=== PATIENT | male | born 1990 | race African-American/Black ===

== ENCOUNTER 2023-09-11 10:15 | Outpatient (CLI) | payer OTHER | END 2023-09-11 10:16 | disposition home or self-care (01) | LOC: PET 10:15 | PROVIDERS: ATTEND Internal Medicine Hematology & Oncology | DX: C34.81 Malignant neoplasm of overlapping sites of right bronchus and lung (principal); R59.0 Localized enlarged lymph nodes | CPT/HCPCS: 78815; A9552 ==

== ENCOUNTER 2023-09-11 14:00 | Inpatient (IN) | payer OTHER, SELFPAY ==
[2023-09-12 06:44] LABS: Hematocrit 28.1 % (42.0-52.0); Hemoglobin 9.1 g/dL (14.0-18.0); Manual Diff?? YES; Mean Corpuscular HGB CONC 32.4 g/dL (32.0-36.0); Mean Corpuscular Hemoglobin 25.5 pg (27.0-31.0); Mean Corpuscular Volume 78.7 fl (78.0-98.0); Mean Platelet Volume 10.2 fL (7.4-10.4); Platelet Count 510 10x3/uL (130-400); RBC Distribution Width 13.6 % (11.5-14.5); Red Blood Cell (RBC) Count 3.57 mill/uL (4.70-6.10); White Blood Cell (WBC) Count 13.5 10x3/uL (4.8-10.8)
[2023-09-12 06:45] LABS: Delete Auto Diff?? YES
[2023-09-12] MEDS ORDERED: Lidocaine 1% PF 5 ML VIAL ONE (06:51)
[2023-09-12] MEDS ORDERED: Dexamethasone 4 mg/ml Vial ONE (06:51)
[2023-09-12] MEDS ORDERED: Ondansetron PF 4 MG/2 ML Vial ONE (06:51)
[2023-09-12] MEDS ORDERED: fentaNYL PF 100 MCG/2 ML SYRINGE ONE ×2 (06:51→09:37)
[2023-09-12] MEDS ORDERED: Rocuronium Bromide 10 MG/ML (10ML VIAL) ONE (06:51)
[2023-09-12] MEDS ORDERED: PROPOFOL 20 ML ONE (06:51)
[2023-09-12] MEDS ORDERED: EPINEPHrine 1 MG/ML VIAL ONE (06:52)
[2023-09-12] MEDS ORDERED: Bupivacaine 0.25% HCL 30 ML VIAL ONE (06:52)
[2023-09-12 06:56] LABS: INR-International Normal Ratio 1.2; Prothrombin Time 15.4 sec (12.0-14.7)
[2023-09-12 06:57] LABS: PTT 41.1 sec (22.9-36.1)
[2023-09-12] MEDS ORDERED: Lidocaine 1% MPF 2 ML VIAL ONE (06:58)
[2023-09-12] MEDS ORDERED: Sodium Chloride 0.9% 100 ML ONE (06:59)
[2023-09-12] MEDS ORDERED: CEFAZOLIN 2 GM VIAL ONE (06:59)
[2023-09-12 07:02] LABS: Anion Gap 13 mmol/L (10-20); BUN (Urea Nitrogen) 9 mg/dL (8.9-20.6); Calc. Creatinine Clearance 139 mL/min (70-130); Calcium 9.5 mg/dL (7.8-10.44); Carbon Dioxide 26 mmol/L (22-29); Chloride 93 mmol/L (98-107); Estimated GFR 128; Glucose 119 mg/dL (70-105); Potassium 3.7 mmol/L (3.5-5.1); Sodium 128 mmol/L (136-145)
[2023-09-12] MEDS ORDERED: Midazolam HCl 2 mg/2 ml Vial ONE (07:29)
[2023-09-12 07:44] LABS: Band 1 % (5-11); CellaVision Operator ID LAB.KW3; Hypochromia SLIGHT = 6-15 cells HPF (0-5); Large Platelets 13.7 % (0-5); Lymphocytes 12 % (21-51); Monocytes 12 % (0-10); Neutrophil 76 % (42-75); Platelet Adequacy Comment Platelets Increased; Polychromasia SLIGHT = 2-3 cells HPF (0-2); Total Cell Count 102
[2023-09-12] MEDS ORDERED: Phenylephrine 10 MG/ML VIAL ONE (08:26)
[2023-09-12] MEDS ORDERED: Ketorolac Tromethamine 30 MG (1 mL) VIAL ONE (08:42)
[2023-09-12] MEDS ORDERED: SUGAMMADEX SODIUM 200 MG/2 ML VIAL ONE (08:42)
[2023-09-12] MEDS ORDERED: Ondansetron PF 4 MG/2 ML Vial IVP PRN (10:00)
[2023-09-12] MEDS ORDERED: Promethazine HCl 25 MG/ML VIAL IM PRN (10:00)
[2023-09-12] MEDS ORDERED: Ipratropium/Albuterol 3 ML NEB NEB PRN (10:00)
[2023-09-12] MEDS ORDERED: Morphine 4 MG/ML VIAL SLOW IVP PRN (10:00)
[2023-09-12] MEDS ORDERED: hydrALAZINE 20 MG/ML VIAL SLOW IVP PRN (10:00)
[2023-09-12 11:00] LABS: #Monocytes 0.7 thou/uL (0.11-0.59); #Neutrophils 9.2 thou/uL (1.40-6.50); %Basophils 0.2 % (0.0-1.0); %Eosinophils 0.1 % (0.0-10.0); %Lymphocytes 8.4 % (21.0-51.0); %Monocytes 6.1 % (0.0-10.0); %Neutrophils 84.8 % (42.0-75.0); Hematocrit 25.8 % (42.0-52.0); Hemoglobin 8.4 g/dL (14.0-18.0); Mean Corpuscular HGB CONC 32.6 g/dL (32.0-36.0); Mean Corpuscular Hemoglobin 25.8 pg (27.0-31.0); Mean Corpuscular Volume 79.4 fl (78.0-98.0); Mean Platelet Volume 10.7 fL (7.4-10.4); Platelet Count 503 10x3/uL (130-400); RBC Distribution Width 13.9 % (11.5-14.5); Red Blood Cell (RBC) Count 3.25 mill/uL (4.70-6.10); White Blood Cell (WBC) Count 10.9 10x3/uL (4.8-10.8)
[2023-09-12 11:24] LABS: Anion Gap 13 mmol/L (10-20); BUN (Urea Nitrogen) 9 mg/dL (8.9-20.6); Calc. Creatinine Clearance 139 mL/min (70-130); Carbon Dioxide 23 mmol/L (22-29); Chloride 96 mmol/L (98-107); Estimated GFR 128; Glucose 133 mg/dL (70-105); Potassium 4.1 mmol/L (3.5-5.1); Sodium 128 mmol/L (136-145)
[2023-09-12 15:41] VITALS: BMI 17.4
[2023-09-12] MEDS: CEFAZOLIN 2 GM in Sodium Chloride 0.9% 100 ML IVPB SCH (15:52)
[2023-09-12] MEDS: Acetaminophen 500 MG TAB PO SCH (16:58)
[2023-09-12] MEDS: Morphine IR Tab 15 MG TAB PO PRN (18:51)
[2023-09-13] MEDS: traMADol HCl 50 MG TAB PO PRN (06:09)
[2023-09-13 07:46] VITALS: TEMP 97.5
[2023-09-13 13:49] VITALS: BP 125/63
== END 2023-09-13 10:27 | disposition home or self-care (01) | DRG 167 ==
LOC: SURG A 09-12 06:08 → EDSTATUS 09-12 08:57 → 2NO 09-12 15:19
PROVIDERS: ADMIT Student in an Organized Health Care Education/Training Program; ATTEND Student in an Organized Health Care Education/Training Program
PROC: 0WBC4ZX Excision of Mediastinum, Percutaneous Endoscopic Approach, Diagnostic (ICD-10-PCS; principal; 2023-09-12)
PROC: 0BBN4ZX Excision of Right Pleura, Percutaneous Endoscopic Approach, Diagnostic (ICD-10-PCS; 2023-09-12)
PROC: 0W9B4ZX Drainage of Left Pleural Cavity, Percutaneous Endoscopic Approach, Diagnostic (ICD-10-PCS; 2023-09-12)
PROC: 0W9B40Z Drainage of Left Pleural Cavity with Drainage Device, Percutaneous Endoscopic Approach (ICD-10-PCS; 2023-09-12)
DX: J98.59 Other diseases of mediastinum, not elsewhere classified (principal); C34.90 Malignant neoplasm of unspecified part of unspecified bronchus or lung; Z87.891 Personal history of nicotine dependence; Z79.899 Other long term (current) drug therapy
CPT/HCPCS: 71045; 78815; 80048; 85025; 85610; 85730; 86850; 86900; 86901; 88184; A9552; C1713; C1889; J0171; J0665; J1100; J1642; J1885; J2250; J2371; J2405; J2704; J3490

== ENCOUNTER 2024-01-04 18:59 | Inpatient (IN) | payer OTHER ==
[~2024-01-04 18:59] MED LIST: Iopamidol-370 76% 500 ML MDV (1 ML CHARGE) ONE
[2024-01-04] MEDS ORDERED: Ketorolac Tromethamine 30 MG (1 mL) VIAL ONE (19:37)
[2024-01-04] MEDS ORDERED: Ondansetron PF 4 MG/2 ML Vial ONE (19:37)
[2024-01-04 20:06] LABS: Bacteria/HPF None Seen HPF (None Seen); Bilirubin Negative (Negative); Blood, Urine Negative (Negative); CAUTI Indications for Culture Pelvic or flank pain; Clarity Extra Turbid (Clear); Glucose, Urine (Dipstick) Normal (Negative); Ketone, Urine Negative (Negative); Leukocyte Negative Leu/uL (Negative); Nitrite Negative (Negative); Protein, Urine (Dipstick) 50 mg/dL (Neg-Trace); RBC/HPF 0-3 HPF (0-3); Specific Gravity, Urine 1.027 (1.002-1.036); Squamous Epithelial None Seen HPF (0-3); Urobilinogen Normal mg/dL (Less than 2)
[2024-01-04 20:07] LABS: Urine Culture Reflex No No
[2024-01-04 20:30] LABS: #Basophils Less than 0.03 10x3/uL (0.0-0.2); #Eosinphils Less than 0.03 10x3/uL (0.0-0.7); %Basophils 0.2 % (0.0-1.0); %Lymphocytes 14.5 % (21.0-51.0); %Monocytes 2.8 % (0.0-10.0); %Neutrophils 81.8 % (42.0-75.0); Hematocrit 35.5 % (42.0-52.0); Hemoglobin 10.8 g/dL (14.0-18.0); Mean Corpuscular HGB CONC 30.4 g/dL (32.0-36.0); Mean Corpuscular Hemoglobin 25.2 pg (27.0-31.0); Mean Corpuscular Volume 82.9 fL (78.0-98.0); Mean Platelet Volume 10.5 fL (7.4-10.4); Platelet Count 421 10x3/uL (130-400); RBC Distribution Width 17.5 % (11.5-14.5); Red Blood Cell (RBC) Count 4.28 mill/uL (4.70-6.10)
[2024-01-04 20:43] LABS: INR-International Normal Ratio 1.1; Prothrombin Time 13.7 sec (12.0-14.7)
[2024-01-04 20:44] LABS: ALT (SGPT) 20 U/L (8-55); AST (SGOT) 30 U/L (5-34); Albumin 2.1 g/dL (3.5-5.0); Alkaline Phosphatase 118 U/L (40-110); Anion Gap 17 mmol/L (10-20); BUN (Urea Nitrogen) 11 mg/dL (8.9-20.6); Bilirubin, Total 0.2 mg/dL (0.2-1.2); Calc. Creatinine Clearance 0 mL/min (70-130); Calcium 8.8 mg/dL (7.8-10.44); Carbon Dioxide 21 mmol/L (22-29); Chloride 100 mmol/L (98-107); Estimated GFR 136; Globulin 4.8 g/dL (2.4-3.5); Glucose 90 mg/dL (70-105); Lipase 44 U/L (8-78); Magnesium 1.5 mg/dL (1.6-2.6); Potassium 3.1 mmol/L (3.5-5.1); Protein, Total 6.9 g/dL (6.0-8.3); Sodium 135 mmol/L (136-145)
[2024-01-04 20:45] LABS: D-Dimer Test 1.2 mcg/mL (0.27-0.43)
[2024-01-04 20:49] LABS: Troponin I Less than 0.010 ng/mL (< 0.028)
[2024-01-04] MEDS ORDERED: NS 0.9% w/ 20 MEQ KCL 1,000 ML ONE (22:07)
[2024-01-04] MEDS ORDERED: Ondansetron ODT 4 MG TAB PO PRN (22:32)
[2024-01-04] MEDS ORDERED: Acetaminophen 325 MG TAB PO PRN (22:32)
[2024-01-04] MEDS ORDERED: Ondansetron PF 4 MG/2 ML Vial IVP PRN (22:32)
[2024-01-04] MEDS ORDERED: Morphine 2 MG/ML VIAL SLOW IVP PRN (22:44)
[2024-01-05 01:27] VITALS: BMI 13.8
[2024-01-05] MEDS: Potassium Chloride 20 MEQ in Premix 1 BAG IVPB SCH (02:15)
[2024-01-05] MEDS: Enoxaparin 40 MG (0.4 mL) SYRINGE SC SCH (09:44)
[2024-01-05] MEDS: Famotidine/PF 20 mg/2ml Vial SLOW IVP SCH (09:44)
[2024-01-05 13:23] LABS: Hematocrit 31.2 % (42.0-52.0); Hemoglobin 9.9 g/dL (14.0-18.0); Mean Corpuscular HGB CONC 31.7 g/dL (32.0-36.0); Mean Corpuscular Hemoglobin 25.4 pg (27.0-31.0); Mean Corpuscular Volume 80.2 fL (78.0-98.0); Mean Platelet Volume 10.2 fL (7.4-10.4); Platelet Count 301 10x3/uL (130-400); RBC Distribution Width 17.8 % (11.5-14.5); Red Blood Cell (RBC) Count 3.89 mill/uL (4.70-6.10)
[2024-01-05 13:35] LABS: ALT (SGPT) 15 U/L (8-55); AST (SGOT) 18 U/L (5-34); Albumin 1.9 g/dL (3.5-5.0); Alkaline Phosphatase 95 U/L (40-110); Anion Gap 15 mmol/L (10-20); BUN (Urea Nitrogen) 13 mg/dL (8.9-20.6); Bilirubin, Total 0.3 mg/dL (0.2-1.2); Calc. Creatinine Clearance 137 mL/min (70-130); Calcium 8.4 mg/dL (7.8-10.44); Carbon Dioxide 22 mmol/L (22-29); Chloride 105 mmol/L (98-107); Estimated GFR 138; Globulin 4.1 g/dL (2.4-3.5); Glucose 71 mg/dL (70-105); Magnesium 1.7 mg/dL (1.6-2.6); Potassium 3.2 mmol/L (3.5-5.1); Sodium 139 mmol/L (136-145)
[2024-01-05 13:36] LABS: Phosphorus 2.4 mg/dL (2.3-4.7)
[2024-01-05 14:34] LABS: Band 12 % (5-11); Eosinophils 1 % (0-10); Hypochromia MODERATE=16-30 cells HPF (0-5); Lymphocytes 25 % (21-51); Monocytes 6 % (0-10); Neutrophil 56 % (42-75); Ovalocytes SLIGHT = 2-5 cells HPF (0-1); Platelet Adequacy Comment Platelets Normal
[2024-01-06 06:09] LABS: Hematocrit 28.6 % (42.0-52.0); Hemoglobin 8.9 g/dL (14.0-18.0); Mean Corpuscular HGB CONC 31.1 g/dL (32.0-36.0); Mean Corpuscular Hemoglobin 24.7 pg (27.0-31.0); Mean Corpuscular Volume 79.4 fL (78.0-98.0); Mean Platelet Volume 10.3 fL (7.4-10.4); Platelet Count 306 10x3/uL (130-400); RBC Distribution Width 17.6 % (11.5-14.5)
[2024-01-06 06:20] LABS: Anion Gap 16 mmol/L (10-20); BUN (Urea Nitrogen) 16 mg/dL (8.9-20.6); Calc. Creatinine Clearance 142 mL/min (70-130); Calcium 8.7 mg/dL (7.8-10.44); Carbon Dioxide 21 mmol/L (22-29); Chloride 106 mmol/L (98-107); Estimated GFR 140; Glucose 80 mg/dL (70-105); Magnesium 1.7 mg/dL (1.6-2.6); Potassium 2.8 mmol/L (3.5-5.1); Sodium 140 mmol/L (136-145)
[2024-01-06 06:38] LABS: Band 7 % (5-11); Hypochromia SLIGHT = 6-15 cells HPF (0-5); Lymphocytes 8 % (21-51); Microcytosis SLIGHT = 6-15 cells HPF (0-5); Monocytes 2 % (0-10); Neutrophil 83 % (42-75); Platelet Adequacy Comment Platelets Normal; Polychromasia SLIGHT = 2-3 cells HPF (0-2)
[2024-01-06] MEDS ORDERED: Electrolyte Replacement Protocol FS PRN (08:00)
[2024-01-06] MEDS: Magnesium 2 GM/50 ML(in water) 2 GM in Premix 1 BAG IVPB SCH ×2 (10:48)
[2024-01-06] MEDS: Potassium Chloride 40 MEQ in Sodium Chloride 0.9% 250 ML 250 ML IVPB SCH (10:48)
[2024-01-06] MEDS: Enoxaparin 30 MG (0.3 mL) SYRINGE SC SCH (10:48)
[2024-01-06] MEDS: Potassium Chloride 20 MEQ TAB PO SCH (12:10)
[2024-01-06 13:33] VITALS: BMI 13.8
[2024-01-06 17:12] VITALS: BP 100/69; TEMP 97.3
== END 2024-01-06 18:25 | disposition home or self-care (01) | DRG 388 ==
LOC: ERS 18:59 → MSONC 21:54 → OBSVTOIN 01-05 09:05
PROVIDERS: ADMIT Internal Medicine; ATTEND Internal Medicine
DX: K56.609 Unspecified intestinal obstruction, unspecified as to partial versus complete obstruction (principal); E43 Unspecified severe protein-calorie malnutrition; C34.90 Malignant neoplasm of unspecified part of unspecified bronchus or lung; J93.9 Pneumothorax, unspecified; J91.0 Malignant pleural effusion; E87.20 Acidosis, unspecified; Z68.1 Body mass index [BMI] 19.9 or less, adult; Z87.891 Personal history of nicotine dependence; E87.6 Hypokalemia; Z79.899 Other long term (current) drug therapy; R62.7 Adult failure to thrive
CPT/HCPCS: 36415; 71045; 74018; 74022; 74177; 80048; 80053; 81001; 83605; 83690; 83735; 84100; 84484; 85025; 85379; 85610; 85730; 87040; 93005; 96375; 96376; G0378; J1650; J1885; J2405; J3475; J3480; J3490; Q9967; S0028